=== PATIENT | male | born 1990 | race Caucasian/White ===

== ENCOUNTER 2020-02-23 18:36 | Emergency (ER) | payer MEDICAID ==
[~2020-02-23] VITALS: Ht 167.6 cm; Wt 72.7 kg
[2020-02-23] MEDS ORDERED: LIDOCAINE 1% 10 ML VIAL SQ ONE (23:15)
[2020-02-23 23:36] VITALS: BP 146/77
== END 2020-02-24 00:19 | disposition home or self-care (01) ==
LOC: EMS 18:45
DX: L03.011 Cellulitis of right finger (principal); F17.210 Nicotine dependence, cigarettes, uncomplicated; F15.90 Other stimulant use, unspecified, uncomplicated
CPT/HCPCS: 10060; 99283; J3490

== ENCOUNTER 2020-03-25 14:03 | Emergency (ER) | payer MEDICAID ==
[~2020-03-25] VITALS: Ht 165.1 cm; Wt 63.6 kg
[2020-03-25 14:07] VITALS: BP 129/77
[2020-03-25] MEDS ORDERED: ACETAMINOPHEN 500 MG TABLET PO ONE (15:15)
[2020-03-25] MEDS ORDERED: PERTUSS(ACELL),DIPH,TET VAC/PF 0.5 ML VIAL IM ONE (15:15)
[2020-03-25] MEDS ORDERED: DOXYCYCLINE HYCLATE 100 MG TABLET PO ONE (15:15)
[2020-03-25] MEDS ORDERED: IBUPROFEN 600 MG TABLET PO ONE (15:15)
== END 2020-03-25 15:48 | disposition home or self-care (01) ==
LOC: EMS 14:09
DX: L03.012 Cellulitis of left finger (principal); F17.210 Nicotine dependence, cigarettes, uncomplicated
CPT/HCPCS: 90471; 90715; 99284; 99406